=== PATIENT | female | born 1955 | race Caucasian/White ===

== ENCOUNTER → 2018-02-05 07:40 | Outpatient (CLI) | payer OTHER, SELFPAY ==
--- NOTE | 2018-02-05 07:42 | DI.RAD.S_ITS ---
PROCEDURE: XR HIP W PEL IF DONE LT 2V INDICATIONS: left hip pain TECHNIQUE: AP pelvis with lateral view(s) of the left hip COMPARISON: None. FINDINGS: Bones: No fractures or dislocations. Pelvic ring appears intact. Moderate osteoarthritic changes are noted involving left hip joint with slight flattening involving the lateral weightbearing portion of femoral head suspicious for early avascular necrosis. Increased radiolucency in the femoral head is also seen. Soft tissues: The visualized bowel gas pattern is normal. No suspicious soft tissue calcifications. IMPRESSION: No hip fracture or dislocation. Moderate left hip joint osteoarthritic changes with findings suspicious for early avascular necrosis. MRI of hip can be done for further evaluation if indicated. Dictated by: Jose Duke M.D. on 02/05/2018 at 9:16 Approved by: Jose Duke M.D. on 02/05/2018 at 9:17
== END ==
PROVIDERS: Visit Provider Physical Medicine & Rehabilitation
DX: M16.12 Unilateral primary osteoarthritis, left hip (principal); M25.552 Pain in left hip
CPT/HCPCS: 73502

== ENCOUNTER → 2018-02-12 18:24 | Outpatient (CLI) | payer OTHER, SELFPAY ==
--- NOTE | 2018-02-12 18:26 | DI.MRI.S_ITS ---
PROCEDURE: MR HIP LT WO CON INDICATIONS: Eval of AVN TECHNIQUE: Noncontrast coronal T1 spin echo and STIR through the bony pelvis. Coronal and axial T2 fast spin echo with fat saturation, sagittal T1 spin echo, and oblique axial T2 fast spin echo with fat saturation through the hip. COMPARISON: [facility], CR, XR HIP W PEL IF DONE LT 2V, 02/05/2018, 7:37. FINDINGS: Image quality: Excellent. Bones and joints: Bone marrow of the right pelvic ring and right proximal femur show normal signal throughout. In contrast, there is marrow edema involving the acetabular roof, the femoral head, femoral neck, and intertrochanteric region of the left proximal femur. No right-sided intraosseous lesions or fractures are present but there is what appears to be avascular necrosis involving the superior articular margin of the left femoral head, over an area of approximately 3.4 cm transverse, 9-10 mm craniocaudad, and 3.5 cm AP following the curvature of the femoral head. Early impaction distortion is associated, as was seen by subtle flattening of the femoral head articular surface on plain films 02/05/18. This is most convincingly demonstrated on coronal T1 imaging series 3 image 18. The visualized lower lumbar spine appears normally aligned. Tendons and ligaments: The gluteus medius and minimus tendons appear intact, without associated muscle atrophy. The nearby proximal iliotibial band also appears intact. The iliopsoas tendon appears intact, without adjacent bursal fluid collections or evidence for impingement syndrome. The origin of the hamstring tendon is intact at the ischial tuberosity, as well as the associated sacrotuberous ligament. The straight and reflected heads of the rectus femoris muscle origin appear intact, as well as the conjoint tendon. The ligamentum teres appears intact where visualized. Labrum and cartilage: The acetabular labrum appears intact in the absence of intra-articular contrast. Cartilage surface of the femoral head on the right appears of normal thickness, but the articular surface on the left is distorted by the early impaction fracture across the portion of the area of avascular necrosis. There is an associated mild to moderate hip joint effusion. The alpha angle of the femur is within normal limits at less than 55 degrees. Soft tissues: Visualized muscles demonstrate normal bulk and internal signal. Quadratus femoris muscle demonstrates no internal edema to suggest ischiofemoral impingement. The proximal sciatic neurovascular bundle appears normal adjacent to the hamstring tendons. No free pelvic fluid. Bladder wall thickness is normal. Genitourinary structures and bowel loops appear normal where visualized. 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 Prominent marrow edema involves the overlying acetabular roof and the femoral head, neck and intertrochanteric regions on the left. The right side appears normal. Reactive mild to moderate left hip joint effusion, no intra-articular loose bodies found. Dictated by: Anthony Parrish M.D. on 02/13/2018 at 14:24 Approved by: Anthony Parrish M.D. on 02/13/2018 at 14:30
== END ==
PROVIDERS: Visit Provider Physical Medicine & Rehabilitation
DX: M87.052 Idiopathic aseptic necrosis of left femur (principal); M25.452 Effusion, left hip
CPT/HCPCS: 73721

== ENCOUNTER → 2019-12-18 07:26 | Outpatient (CLI) | payer OTHER, SELFPAY ==
--- NOTE | 2019-12-18 07:29 | DI.RAD.S_ITS ---
PROCEDURE: XR CERVICAL SPINE 4V OR 5V INDICATIONS: neck pain TECHNIQUE: 5 views of the cervical spine acquired. COMPARISON: [facility] [place], CR, SPINE CERVICAL MIN 4VW, 08/14/2014, 14:01. FINDINGS: Bones: No fractures or dislocations to the C7 level. Multilevel degenerative endplate sclerosis and spurring. Diffuse facet arthropathy. Diffuse moderate narrowing of the cervical disc spaces. On the left, mild bony foraminal narrowing seen at C3-C4 (with interval progression), C5-C6, and C6-C7. On the right, moderate bony foraminal stenosis at C4-C5 and C5-C6. Soft tissues: No prevertebral soft tissue swelling. IMPRESSION: Diffuse cervical spondylosis and facet arthropathy. Interval progression in left C3-C4 bony foraminal stenosis. Elsewhere no interval change since 08/14/14. Dictated by: Wes Martinez M.D. on 12/18/2019 at 8:37 Approved by: Wes Martinez M.D. on 12/18/2019 at 8:40
== END ==
PROVIDERS: PCP Family Medicine; Referring Provider Physical Medicine & Rehabilitation; Visit Provider Physical Medicine & Rehabilitation
DX: M54.2 Cervicalgia (principal); M47.812 Spondylosis without myelopathy or radiculopathy, cervical region; M48.02 Spinal stenosis, cervical region
CPT/HCPCS: 72050

== ENCOUNTER → 2021-11-18 14:11 | Outpatient (CLI) | payer OTHER, SELFPAY ==
--- NOTE | 2021-11-18 14:13 | DI.RAD.S_ITS ---
PROCEDURE: XR SHOULDER RT MIN 2V INDICATIONS: RIGHT SHOULER PAIN TECHNIQUE: 3 views of the shoulder were acquired. COMPARISON: None. FINDINGS: Bones: No fractures or dislocations. No suspicious bony lesions. Mild acromioclavicular joint and glenohumeral joint osteoarthritic changes are seen with joint space narrowing and subchondral sclerosis. Visualized ribs appear intact. Soft tissues: Small calcification adjacent to greater tuberosity of humeral head near rotator cuff tendon insertion is seen suggestive of calcific tendinitis. IMPRESSION: Mild right shoulder joint osteoarthritis and suggestion of calcific tendinitis involving distal rotator cuff tendon. No fracture or dislocation. No suspicious bony lesion. Dictated by: Jose Duke M.D. on 11/18/2021 at 16:47 Approved by: Jose Duke M.D. on 11/18/2021 at 16:48
== END ==
PROVIDERS: PCP Family Medicine; Referring Provider Physical Medicine & Rehabilitation; Visit Provider Physical Medicine & Rehabilitation
DX: M25.511 Pain in right shoulder (principal); M19.011 Primary osteoarthritis, right shoulder; M47.812 Spondylosis without myelopathy or radiculopathy, cervical region; M54.81 Occipital neuralgia; Z96.642 Presence of left artificial hip joint; Z68.1 Body mass index [BMI] 19.9 or less, adult; M53.83 Other specified dorsopathies, cervicothoracic region
CPT/HCPCS: 20552; 73030; 99213; J3301

== ENCOUNTER → 2023-01-27 08:02 | Outpatient (CLI) | payer OTHER, SELFPAY ==
--- NOTE | 2023-01-27 08:04 | DI.RAD.S_ITS ---
PROCEDURE: XR HAND RT 2V INDICATIONS: Right hand CMC TECHNIQUE: 2 views of the hand(s) acquired. COMPARISON: None. FINDINGS: Bones: No fractures or dislocations. Carpal bones are normally aligned. No suspicious bony lesions. First CMC joint space is unremarkable. Soft tissues: No suspicious soft tissue calcifications. IMPRESSION: No acute bony abnormality. No significant 1st CMC osteoarthritis. Dictated by: Giovanni Blandon M.D. on 01/27/2023 at 10:50 Approved by: Giovanni Blandon M.D. on 01/27/2023 at 10:53
--- NOTE | 2023-01-27 08:04 | DI.MRI.S_ITS ---
PROCEDURE: MR CERVICAL SPINE WO CON INDICATIONS: PROGRESSIVE CERVICAL SPONDYLOSIS TECHNIQUE: Noncontrast sagittal T1 spin echo and T2 fast spin echo, sagittal STIR, foraminal oblique sagittal T2 fast spin echo, and axial gradient echo or T2 fast spin echo through the cervical spine. COMPARISON: None. FINDINGS: Image quality: Excellent. Alignment and Curvature: There is minimal retrolisthesis at C2-C3, with minimal anterolisthesis at C3-C4. Minimal retrolisthesis can be seen at C4-C5, C5-C6, and C6-C7. Bone Marrow: Marrow demonstrates normal overall signal. Spinal Cord: Visualized spinal cord has normal size and signal. No cerebellar tonsillar herniation. Paraspinous Soft Tissues: No paravertebral masses. Prevertebral soft tissues are normal in thickness. C2-C3: Moderate loss of disc height is seen. Loss of disc signal is seen. A mild degree of generalized disc osteophyte complex is seen. Mild facet joint hypertrophy is seen. There is moderate right-sided and mild left-sided neural foraminal narrowing. The central canal is widely patent. C3-C4: Moderate loss of disc height is seen. Loss of disc signal is seen. Mild to moderate disc osteophyte complex is seen at this level. There is a central disc osteophyte protrusion. Moderate facet joint hypertrophy is seen. Moderate to severe bilateral neural foraminal narrowing can be seen. Mild central canal narrowing is seen. C4-C5: At least moderate loss of disc height and disc signal can be seen. At least moderate disc osteophyte complex is seen, which is eccentric to the right. There is a central/right disc osteophyte protrusion. Uncovertebral joint hypertrophy is seen at this level. There is at least moderate right-sided and moderate left-sided facet hypertrophy. There is at least moderate bilateral neural foraminal narrowing. Mild to moderate central canal narrowing can be seen. C5-C6: At least moderate loss of disc height and disc signal can be seen. At least moderate disc osteophyte complex is seen, which is eccentric to the left. Uncovertebral joint hypertrophy is seen at this level. Moderate facet joint hypertrophy is seen. Moderate to severe bilateral neural foraminal narrowing can be seen. At least moderate central canal narrowing is seen. There is a mild degree of compression seen upon the ventral spinal cord. C6-C7: Moderate to severe loss of disc height and disc signal can be seen. Moderate generalized disc osteophyte complex is seen. There is a mild central disc osteophyte protrusion. Moderate facet joint hypertrophy is seen. There is moderate right-sided and moderate to severe left-sided neural foraminal narrowing. Mild to moderate central canal narrowing is seen, with a minimal degree of mass effect upon the ventral spinal cord. C7-T1: Mild loss of disc height is seen. Loss of disc signal is seen. A mild degree of generalized disc osteophyte complex is seen. There is mild right-sided and moderate to severe left-sided neural foraminal narrowing. There is [id number] left-sided and no significant right-sided neural foraminal narrowing. No significant central canal narrowing is seen. IMPRESSION: Multiple levels of significant spine degenerative changes can be seen, which are overall worst at C5-C6 and C6-C7. Dictated by: Chon Arias M.D. on 01/27/2023 at 10:47 Approved by: Chon Arias M.D. on 01/27/2023 at 10:53
== END ==
PROVIDERS: Referring Provider Physical Medicine & Rehabilitation; Visit Provider Physical Medicine & Rehabilitation
DX: M47.812 Spondylosis without myelopathy or radiculopathy, cervical region (principal); R51.9 Headache, unspecified; M19.049 Primary osteoarthritis, unspecified hand
CPT/HCPCS: 72141; 73120

== ENCOUNTER → 2023-06-27 09:35 | Outpatient (CLI) | payer OTHER, SELFPAY ==
--- NOTE | 2023-06-27 09:45 | DI.RAD.S_ITS ---
PROCEDURE: XR CERVICAL SPINE 4V OR 5V INDICATIONS: neck pain TECHNIQUE: 5 views of the cervical spine acquired. COMPARISON: [facility], CR, XR CERVICAL SPINE 4V OR 5V, 12/18/2019, 7:22. FINDINGS: Bones: No fractures or dislocations to the T1 level. Oblique images demonstrate no bony foraminal stenoses. Grade 1 retrolisthesis of C4 on C5. Moderate disc height loss at all levels. Diffuse facet arthrosis. Soft tissues: No prevertebral soft tissue swelling. IMPRESSION: Moderate, multilevel degenerative disc disease and facet arthrosis. Dictated by: Giovanni Blandon M.D. on 06/27/2023 at 12:25 Approved by: Giovanni Blandon M.D. on 06/27/2023 at 12:26
== END ==
LOC: RAD 09:44
PROVIDERS: Referring Provider Physical Medicine & Rehabilitation; Visit Provider Physical Medicine & Rehabilitation
DX: M47.812 Spondylosis without myelopathy or radiculopathy, cervical region (principal); M50.30 Other cervical disc degeneration, unspecified cervical region
CPT/HCPCS: 72050

== ENCOUNTER → 2024-03-18 07:44 | Outpatient (CLI) | payer OTHER, SELFPAY ==
--- NOTE | 2024-03-18 07:45 | DI.RAD.S_ITS ---
PROCEDURE: XR SHOULDER RT MIN 2V INDICATIONS: calcific tendonitis TECHNIQUE: 3 views of the shoulder were acquired. COMPARISON: [facility], CR, XR SHOULDER RT MIN 2V, 11/18/2021, 14:02. FINDINGS: Bones: No acute fractures or dislocations. No suspicious bony lesions. Visualized ribs appear intact. [id number] acromioclavicular joint osteoarthrosis. Soft tissues: Trace calcifications are seen posterior to the right humeral head, which have decreased when compared to the prior exam from 11/18/2021. IMPRESSION: 1. Mild distal rotator cuff calcific tendinopathy. Calcifications have decreased when compared to the exam from 11/18/2021. 2. [id number] acromioclavicular joint osteoarthrosis. Approved by: Leighton Barber M.D. on 03/18/2024 at 8:05
== END ==
PROVIDERS: Referring Provider Physical Medicine & Rehabilitation; Visit Provider Physical Medicine & Rehabilitation
DX: M75.31 Calcific tendinitis of right shoulder (principal); M19.011 Primary osteoarthritis, right shoulder
CPT/HCPCS: 73030